=== PATIENT | female | born 1980 | race American Indian/Alaskan Native ===

== ENCOUNTER 2016-07-29 11:37 | Outpatient (CLI) | payer OTHER ==
--- NOTE | 2016-07-29 13:35 | Mammography Report ---
Bilateral mammogram: No previous studies available. CAD study utilized. Findings: Predominance of adipose tissue bilaterally. Focal ill-defined asymmetry upper right breast and a round 3 mm dense asymmetry inner right breast. No microcalcification. The benign axillary nodes. Impression: Focal asymmetry right upper and right inner breast. Recommend comparison with previous studies. If previous studies are not available spot magnification and sonographic examination advised. BI-RADS CATEGORY: 0 = Needs additional imaging evaluation ACR BI-RADS MAMMOGRAPHIC CODES: 0 = Needs additional imaging evaluation; 1 = Negative; 2 = Benign; 3 = Probably benign; 4 = Suspicious; 5 = Malignant; 6 = Known biopsy-proven malignancy COMMENT: 1. Dense breast tissue, i.e., adenosis, fibrocystic changes, etc., may obscure an underlying neoplasm. 2. Approximately 10% of cancers are not detected with mammography. 3. A negative mammography report should not delay biopsy if a clinically suspicious mass is present. COMMENT: Patient follow-up letters are generated in [employer].
== END 2016-07-29 11:38 | disposition home or self-care (01) ==
LOC: MAMMO 11:37
PROVIDERS: ATTEND Obstetrics & Gynecology
DX: Z12.31 Encounter for screening mammogram for malignant neoplasm of breast (principal)
CPT/HCPCS: 77067; G0202

== ENCOUNTER 2017-01-04 10:24 | Inpatient (IN) | payer OTHER ==
[2017-01-04] MEDS ORDERED: D5W IV SCH (11:00)
[2017-01-04] MEDS ORDERED: SOLU MEDROL IV SCH (11:00)
--- NOTE | 2017-01-04 11:08 | History and Physical Report ---
History of Present Illness Date of examination: 01/04/17 Date of admission: 01/04/17 10:54 Chief complaint: inability to keep food or liquid down, 10 lb weight loss in two weeks History of present illness: Pt is a 36 year old female ROMEL 07/28/17 at 10w5d by LMP who presents with intractable nausea and vomiting for the past two weeks with 9 lb weight loss over the same time period. She denies vaginal bleeding but reports fatigue and weakness. UA in office showed 40 of ketones. She has had one visit this . Past History Past Medical History: no pertinent history Past Surgical History: section (x 2 ) [employer] History: abnormal PAP smear, fibroids, herpes, other (female genital mutilation ) Family/Genetic History: none Social history: no significant social history, - Obstetrical History Expected Date of Delivery: 07/28/17 Actual Gestation: 10 Week(s) 5 Day(s) : 4 Para: 2 Hx # Term Pregnancies: 2 Number of Pregnancies: 0 Spontaneous Abortions: 0 Induced : 1 Number of Living Children: 2 Medications and Allergies Allergies Allergy/AdvReac Type Severity Reaction Status Date / Time No Known Allergies Allergy Verified 01/16/14 13:46 Home Medications Medication Instructions Recorded Confirmed Last Taken Type Doxylamine/Pyridoxine HCl 1 each PO TID PRN #30 tablet. 01/17/14 08/08/14 Unknown Rx [Lisa Baird 10-10 mg Tablet] Ondansetron [Zofran TAB] 8 mg PO Q8HR PRN #30 tablet 01/17/14 08/08/14 Unknown Rx Vit-Fe Fumar-FA [ 1 each PO QDAY #30 tablet 01/17/14 08/08/14 08/06/14 Rx Vitamin] Promethazine [Phenergan SUPPOS] 25 mg PO Q6H PRN #30 01/17/14 08/08/14 Unknown Rx Ferrous Sulfate [Feosol 325 MG tab] 325 mg PO BID #60 tablet 08/10/14 Unknown Rx HYDROmorphone [Dilaudid] 2 mg PO Q4H PRN #40 tablet 08/10/14 Unknown Rx Ibuprofen [Motrin 800 MG tab] 800 mg PO Q8H PRN #30 tablet 08/10/14 Unknown Rx Vit-Fe Fumar-FA [ 1 each PO QDAY #30 tablet 08/10/14 Unknown Rx Vitamin] Active Meds: Active Medications Dextrose/Lactated Ringer's (D5lr) 1,000 mls @ 500 mls/hr IV DIRECT KODY Stop: 01/05/17 12:59 Dextrose/Lactated Ringer's (D5lr) 1,000 mls @ 150 mls/hr IV DIRECT KODY Potassium Chloride (Kcl 10meq/100ml) 10 meq in 100 mls @ 100 mls/hr IV Q1H KODY Stop: 01/04/17 13:59 Methylprednisolone Sodium (Succinate 100 mg/ Dextrose) 50 mls @ 100 mls/hr IV Q8H KODY Stop: 01/05/17 11:29 Metoclopramide HCl (Reglan) 10 mg IV Q6H KODY Multivitamins/Iron/Calcium ( Vitamin) 1 each PO QDAY KODY Ondansetron HCl (Zofran) 4 mg IV Q6H PRN PRN Reason: N/V unrelieved by Reglan Promethazine HCl (Phenergan) 25 mg SC Q6H KODY Scopolamine (Transderm-Scop) 1 each TD Q3D KODY Review of Systems All systems: negative Constitutional: weight loss, fatigue, weakness, poor appetite Gastrointestinal: nausea, vomiting, no diarrhea - Physical Exam Breasts: Positive: deferred Results All other labs normal. Assessment and Plan A: IUP at 10w5d by LMP Hyperemesis Gravidarum P: Admit to antepartum service for observation. IV hydration. IV antiemetics and steroids . Ultrasound for viability
[2017-01-04] MEDS ORDERED: ZOFRAN IV PRN (12:00)
--- NOTE | 2017-01-04 12:52 | Ultrasound Report ---
ULTRASOUND OB LESS THAN 14 WEEKS - TRANSABDOMINAL INDICATION: Viability assessment. COMPARISON: None similar during this gestation. FINDINGS: Transabdominal pelvic sonography performed in this patient with estimated clinical age of 10 weeks and 5 days. An anteverted, gravid uterus measuring approximately 12.9 x 6.4 x 8.7 cm demonstrates a single, live intrauterine gestation with heart rate of 164 beats per minute. An approximately 1 x 0.5 cm anterior fibroid questioned, image 29. Mean crown-rump length of 5.31 cm corresponds to 12 weeks and zero days. body/limb movements seen on real-time sonography. No pelvic free fluid. Right ovary is 2.1 x 1.1 x 1.3 cm. Approximately 3.1 x 2.4 x 3 cm left ovary demonstrates a 1.9 cm slightly complex/hemorrhagic cyst, possible corpus luteum. CONCLUSION: 1. Single, live intrauterine gestation with an ultrasound estimated age of 12 weeks and 0 days and ROMEL of 07/19/2017. Please also correlate clinically for approximately 1 week discrepancy with the LMP. 2. Few other findings, as above. Thank you for the opportunity to participate in this patient's care.
[2017-01-04] MEDS ORDERED: TRANSDERM-SCOP TD SCH (13:00)
[2017-01-04] MEDS: PHENERGAN PR SCH ×3 (13:15→23:18)
[2017-01-04] MEDS: REGLAN IV SCH ×3 (13:15→23:18)
[2017-01-04 13:42] LABS: Basophils % (Auto) 0.3 % (0.0-1.8); Eosinophils % (Auto) 0.1 % (0.0-4.3); Hematocrit 37.5 % (30.3-42.9); Hemoglobin 13.2 gm/dl (10.1-14.3); Mean Corpuscular HGB Conc 35 % (30-34); Mean Corpuscular Hemoglobin 28 pg (28-32); Mean Corpuscular Volume 80 fl (79-97); Platelet Count 216 K/mm3 (140-440); Red Blood Count 4.71 M/mm3 (3.65-5.03); Red Cell Distribution Width 13.4 % (13.2-15.2); White Blood Count 8.3 K/mm3 (4.5-11.0)
[2017-01-04 14:20] LABS: Anion Gap 21 mmol/L; BUN/Creatinine Ratio 18.57; Blood Urea Nitrogen 13 mg/dL (7-17); Calcium 9.5 mg/dL (8.4-10.2); Carbon Dioxide 26 mmol/L (22-30); Chloride 94.6 mmol/L (98-107); Glucose 127 mg/dL (65-100); Potassium 3.1 mmol/L (3.6-5.0); Sodium 138 mmol/L (137-145)
[2017-01-04] MEDS: D5LR 1,000 ML IV SCH ×3 (15:11→17:46)
[2017-01-04] MEDS: KCL 10MEQ/100ML 10 MEQ/100 ML BAG IV SCH ×3 (16:57→23:42)
--- NOTE | 2017-01-04 18:42 | Admit Criteria Form ---
Admission Criteria Documentation: HYPEREMESIS GRAVIDARUM Clinical Indications for Admission to Inpatient Care ([place]/check or initial the applicable condition/criteria) Admission is indicated for 1 or more of the following 1)(2)(3)(4)(5) [ ]I. Suspected serious gastrointestinal pathology (eg, acute fatty liver of , pancreatitis) as indicated by 1 or more of the following (6)(7): [ ]a) Significantly elevated serum transaminase or bilirubin (e.g., greater than 10 times normal) [ ]b) Significantly elevated bilirubin (eg greater than 4mg/dL (68 micromoles/L) [ ]c) Significantly elevated serum amylase or lipase (eg greater than 5 times normal) [ ]d) Elevated serum ammonia level [ ]e) Coagulopathy (e.g., elevated PT, PTT) [ ]f) Ascites [ ]g) Encephalopathy [X ]II. Inpatient admission required [A] rather than observation care (See use Hyperemesis Gravidarum: Observation Care as appropriate) because of 1 or more of the following (4)(5)(8): [ ]a) Hemodynamic instability [X ]b) Vomiting that is severe or persistent [ ]c) Dehydration that is severe or persistent [ ]d) Severe electrolyte abnormalities requiring inpatient care [ ]e) Metabolic disorder (e.g., hyperchloremic alkalosis) that is severe or persistent [ ]f) Acute renal failure [ ]g) Significant neurologic findings (e.g., ataxia, nysthagmus, Altered mental status that is severe or persistent) [ ]h) compromise identified [ ]i) Hydatidiformmole identified [ ]j) Other condition, treatment or monitoring requiring inpatient admission Extended stay beyond goal length of stay may be needed for(1)(20): [ ]a) Severe electrolyte disorder that persists [ ]b) Malnutrition(10) [ ]c) Acute fatty liver of (6)(7) [ ]d) Hydatidiform mole (2) [ ]e) Wernicke encephalopathy or other WELLNESS GUIDE complication (eg, osmotic demyelination syndrome)(2)(10)(21) [ ]f) compromise The original [employer] content created by [employer] has been revised. The portions of the content which have been revised are identified through the use of italic text or in bold, and [facility] has neither reviewed nor approved the modified material. All other unmodified content is copyright [facility]. Please see references footnoted in the original [facility] edition 2017 Admission Criteria Met: Yes
[2017-01-04 20:07] LABS: Bacteria,Urine 1+ /HPF (Negative); Bilirubin,Urine NEG (Negative); Blood,Urine NEG (Negative); Ketones,Urine NEG (Negative); Leukocyte Esterase,Urine NEG (Negative); Mucus,Urine 1+ /HPF; Nitrite,Urine NEG (Negative); Protein,Urine <15 mg/dL mg/dL (Negative); WBC,Urine < 1.0 /HPF (0.0-6.0)
[2017-01-05] MEDS: D5LR 1,000 ML IV SCH (05:37)
[2017-01-05] MEDS: PHENERGAN PR SCH ×4 (05:37→23:59)
[2017-01-05] MEDS: REGLAN IV SCH (05:42)
--- NOTE | 2017-01-05 06:05 | Progress Note ---
Assessment and Plan A: IUP at 10w6d by LMP Hyperemesis Gravidarum P: Continue current care plan. Attempt PO antiemetics today. Subjective - Subjective Date of service: 01/05/17 Principal diagnosis: IUP at 10w5d, Hyperemesis Interval history: Pt feeling much better. Tolerating clears. Patient reports: no new complaints, no loss of fluid, no vaginal bleeding, no contractions Objective - Vital Signs Vital Signs: Vital Signs - 12hr 01/04/17 01/05/17 01/05/17 20:05 00:35 04:40 Temperature 98.9 F 98.3 F 98.3 F Pulse Rate [ 84 78 74 Left Radial] Respiratory 20 18 18 Rate Blood Pressure 101/59 111/67 109/65 [Left Arm] - Exam Breasts: deferred Cardiovascular: Regular rate Lungs: Clear to auscultation Abdomen: Present: soft Extremities: normal - Labs Labs: Abnormal Labs 01/04/17 01/04/17 01/04/17 13:19 13:19 19:15 MCHC 35 H Potassium 3.1 L Chloride 94.6 L Glucose 127 H Urine pH 8.0 H Laboratory Results - last 24 hr 01/04/17 01/04/17 01/04/17 13:19 13:19 13:19 WBC 8.3 RBC 4.71 Hgb 13.2 Hct 37.5 MCV 80 MCH 28 MCHC 35 H RDW 13.4 Plt Count 216 Lymph % (Auto) 27.8 Ralls % (Auto) 6.1 Eos % (Auto) 0.1 Baso % (Auto) 0.3 Lymph # 2.3 Ralls # 0.5 Eos # 0.0 Baso # 0.0 Seg Neutrophils % 65.7 Seg Neutrophils # 5.5 Sodium Potassium Chloride Carbon Dioxide Anion Gap BUN Creatinine Estimated GFR BUN/Creatinine Ratio Glucose Calcium TSH 1.110 Urine Color Urine Turbidity Urine pH Ur Specific [place] Urine Protein Urine Glucose (UA) Urine Ketones Urine Blood Urine Nitrite Urine Bilirubin Urine Urobilinogen Ur Leukocyte Esterase Urine WBC (Auto) Urine RBC (Auto) U Epithel Cells (Auto) Urine Bacteria (Auto) Urine Mucus Hepatitis A IgM Ab Non-reactive Hep Bs Antigen Non-reactive Hep B Core IgM Ab Non-reactive Hepatitis C Antibody Non-reactive 01/04/17 01/04/17 13:19 19:15 WBC RBC Hgb Hct MCV MCH MCHC RDW Plt Count Lymph % (Auto) Ralls % (Auto) Eos % (Auto) Baso % (Auto) Lymph # Ralls # Eos # Baso # Seg Neutrophils % Seg Neutrophils # Sodium 138 Potassium 3.1 L Chloride 94.6 L Carbon Dioxide 26 Anion Gap 21 BUN 13 Creatinine 0.7 Estimated GFR > 60 BUN/Creatinine Ratio 18.57 Glucose 127 H Calcium 9.5 TSH Urine Color Yellow Urine Turbidity Clear Urine pH 8.0 H Ur Specific [place] 1.018 Urine Protein <15 mg/dl Urine Glucose (UA) >=500 Urine Ketones Neg Urine Blood Neg Urine Nitrite Neg Urine Bilirubin Neg Urine Urobilinogen 4.0 Ur Leukocyte Esterase Neg Urine WBC (Auto) < 1.0 Urine RBC (Auto) 2.0 U Epithel Cells (Auto) 5.0 Urine Bacteria (Auto) 1+ Urine Mucus 1+ Hepatitis A IgM Ab Hep Bs Antigen Hep B Core IgM Ab Hepatitis C Antibody
[2017-01-05] MEDS ORDERED: REGLAN IV PRN ×2 (06:31→15:56)
[2017-01-05] MEDS ORDERED: PRENATAL VITAMIN PO SCH (10:00)
[2017-01-05] MEDS ORDERED: K-DUR PO ONE (15:44)
[2017-01-05] MEDS ORDERED: ZOFRAN IV PRN (15:54)
[2017-01-05] MEDS ORDERED: D5LR 1,000 ML IV SCH (16:00)
[2017-01-05] MEDS: K-DUR PO ONE ×2 (18:10→18:13)
[2017-01-05] MEDS: KCL 10MEQ/100ML 10 MEQ/100 ML BAG IV SCH (21:01)
[2017-01-06] MEDS ORDERED: K-DUR PO ONE (00:53)
[2017-01-06] MEDS: KCL 10MEQ/100ML 10 MEQ/100 ML BAG IV SCH ×2 (04:09→04:10)
[2017-01-06] MEDS: PHENERGAN PR SCH (05:44)
--- NOTE | 2017-01-06 09:17 | Progress Note ---
Assessment and Plan - Patient Problems (1) Hyperemesis complicating , antepartum Current Visit: No Status: Acute Plan to address problem: patient doing well discharge home Subjective - Subjective Date of service: 01/06/17 Principal diagnosis: IUP at 10w5d, Hyperemesis Interval history: The patient reports feeling much better. She is tolerating her regular breakfast this am. Patient reports: no new complaints, no loss of fluid, no vaginal bleeding, no contractions Objective - Vital Signs Vital Signs: Vital Signs - 12hr 01/06/17 01/06/17 00:00 04:05 Temperature 98.9 F 99.3 F Pulse Rate [ 77 69 Left Radial] Respiratory 18 18 Rate Blood Pressure 116/56 90/51 [Left Arm] - Labs Labs: Abnormal Labs 01/04/17 01/04/17 01/04/17 13:19 13:19 19:15 MCHC 35 H Potassium 3.1 L Chloride 94.6 L Glucose 127 H Urine pH 8.0 H 01/05/17 07:18 MCHC Potassium 3.2 L Chloride Glucose Urine pH
--- NOTE | 2017-01-06 09:19 | Discharge Summary ---
Providers - Providers Date of Admission: 01/05/17 10:24 Date of discharge: 01/06/17 Attending physician: MCKENNA SCOTT Primary care physician: MCKENNA SCOTT Hospitalization Reason for admission: other (hyperemesis gravidarum) Procedure: other (IV hydration and anti-emetic) Discharge diagnosis: other (Hyperemesis) Hospital course: The patient was admitted for nausea and vomiting. She received IV hydration and antiemetic therapy with significant improvement in her symptoms. Condition at discharge: Good Disposition: DC-01 TO HOME OR SELFCARE - Discharge Diagnoses (1) Hyperemesis complicating , antepartum Status: Acute Plan - Provider Discharge Summary Diet: routine Instructions: routine Additional instructions: [] Smoking cessation referral if applicable(refer to patient education folder for contact #) [] Refer to [facility] Center Booklet Call your doctor immediately for: * Fever > 100.5 * Heavy vaginal bleeding ( >1 pad per hour) * Severe persistent headache * Shortness of breath * Reddened, hot, painful area to leg or breast * followup in 2 weeks - Follow up plan
[2017-01-06] MEDS ORDERED: PRENATAL VITAMIN PO SCH (10:00)
[2017-01-06 11:07] VITALS: BP 92/55
== END 2017-01-06 12:00 | disposition home or self-care (01) | DRG 781 ==
LOC: OB 10:24 → UNDOADMOB 10:54 → 3A 10:54 → OB 11:16 → OBSVTOIN 01-05 10:24
PROVIDERS: ADMIT Obstetrics & Gynecology; ATTEND Obstetrics & Gynecology
DX: O21.0 Mild hyperemesis gravidarum (principal); Z3A.10 10 weeks gestation of pregnancy; O34.219 Maternal care for unspecified type scar from previous cesarean delivery
CPT/HCPCS: 36415; 76801; 80048; 80074; 81001; 84132; 84443; 85025; G0378; G0379; J2765; J2930; J3480; J7121

== ENCOUNTER 2018-10-13 14:06 | Outpatient (CLI) | payer OTHER ==
--- NOTE | 2018-10-13 15:04 | Mammography Report ---
Bilateral mammogram: Compared to 08/13/16 on 07/29/16. CAD study utilized. The Findings: Predominance adipose tissue bilaterally. No microcalcification. Focal asymmetry inner posterior left breast. Benign axillary nodes. Impression: New focal asymmetry inner left breast. Recommend spot compression and sonographic examination. BI-RADS CATEGORY: 0 = Needs additional imaging evaluation ACR BI-RADS MAMMOGRAPHIC CODES: 0 = Needs additional imaging evaluation; 1 = Negative; 2 = Benign; 3 = Probably benign; 4 = Suspicious; 5 = Malignant; 6 = Known biopsy-proven malignancy COMMENT: 1. Dense breast tissue, i.e., adenosis, fibrocystic changes, etc., may obscure an underlying neoplasm. 2. Approximately 10% of cancers are not detected with mammography. 3. A negative mammography report should not delay biopsy if a clinically suspicious mass is present. COMMENT: [facility] Impression: Benign findings.
== END 2018-10-13 14:07 | disposition home or self-care (01) ==
LOC: MAMMO 14:06
PROVIDERS: ATTEND Obstetrics & Gynecology
DX: Z12.31 Encounter for screening mammogram for malignant neoplasm of breast (principal)
CPT/HCPCS: 77067

== ENCOUNTER 2018-11-24 13:50 | Outpatient (CLI) | payer OTHER ==
--- NOTE | 2018-11-24 14:09 | Mammography Report ---
LEFT DIGITAL DIAGNOSTIC MAMMOGRAM : 11/24/18 13:50:00 CLINICAL: Recalled for asymmetry. COMPARISON:10/13/18 screening FINDINGS: Additional mammographic views were performed and are negative. IMPRESSION: Negative Mammogram. BI-RADS CATEGORY: 1 -- Negative RECOMMENDATION: Routine mammographic screening in one year. COMMENT: 1. Dense breast tissue, i.e., adenosis, fibrocystic changes, etc., may obscure an underlying neoplasm. 2. Approximately 10% of cancers are not detected with mammography. 3. A negative mammography report should not delay biopsy if a clinically suspicious mass is present. COMMENT: Patient follow-up letters are generated via our [employer] application.
== END 2018-11-24 13:51 | disposition home or self-care (01) ==
LOC: MAMMO 13:50
PROVIDERS: ATTEND Obstetrics & Gynecology
DX: R92.8 Other abnormal and inconclusive findings on diagnostic imaging of breast (principal)

== ENCOUNTER 2020-07-12 10:44 | Outpatient (CLI) | payer OTHER ==
--- NOTE | 2020-07-12 12:20 | Mammography Report ---
DIGITAL SCREENING MAMMOGRAM WITH CAD, 07/12/2020 CLINICAL INFORMATION / INDICATION: Routine screening mammography. TECHNIQUE: Digital bilateral 2D mammography was obtained in the craniocaudal and mediolateral obliqu e projections. This examination was interpreted with the benefit of Computer-Aided Detection analysis . COMPARISON: 10/13/2018 FINDINGS: Breast Density: The breasts are heterogeneously dense, which may obscure small masses. No dominant mass, suspicious calcifications, or architectural distortion in either breast. IMPRESSION: No mammographic evidence of malignancy. Follow up recommendation: Routine yearly BI-RADS Category 1: Negative. A "normal" or negative report should not discourage follow up or biopsy of a clinically significant f inding. A written summary of these findings will be mailed to the patient. The patient will be entered into a mammography reporting system which will generate a reminder letter for the patient's next appointmen t at the appropriate interval. The [employer] recommends yearly mammograms starting at age 40 and continuing as l vashti as a woman is in good health. Breast MRI is recommended for women with an approximate 20-25% or greater lifetime risk of breast cancer, including women with a strong family history of breast or ova pura cancer or who have been treated for Hodgkin's disease. Signer Name: Michele Nguyễn MD Signed: 07/12/2020 12:16 PM Workstation Name: [id number]
== END 2020-07-12 10:45 | disposition home or self-care (01) ==
LOC: MAMMO 10:44
PROVIDERS: ATTEND Obstetrics & Gynecology
DX: Z12.31 Encounter for screening mammogram for malignant neoplasm of breast (principal)
CPT/HCPCS: 77067

== ENCOUNTER 2021-08-29 14:59 | Outpatient (CLI) | payer OTHER | END 2021-08-29 15:00 | disposition home or self-care (01) | LOC: MAMMO 14:59 | PROVIDERS: ATTEND Obstetrics & Gynecology | DX: Z12.31 Encounter for screening mammogram for malignant neoplasm of breast (principal) | CPT/HCPCS: 77067 ==